=== PATIENT | male | born 1980 | race Caucasian/White ===

== ENCOUNTER 2018-09-12 17:07 | Emergency (ER) | payer MEDICAID, OTHER ==
[~2018-09-12] VITALS: Ht 167.6 cm; Wt 64.2 kg
[2018-09-12 17:11] VITALS: BP 116/77
[2018-09-12] MEDS ORDERED: FLUORESCEIN OPHTHALMIC 1 MG STRIP ONE (17:40)
[2018-09-12] MEDS ORDERED: PROPARACAINE OPHTH 0.5%, 15ML ONE (17:40)
[2018-09-12] MEDS ORDERED: FLUORESCEIN OPHTHALMIC 1 MG STRIP EACHEYE ONE (18:00)
[2018-09-12] MEDS ORDERED: PROPARACAINE OPHTH 0.5%, 15ML EACHEYE ONE (18:00)
== END 2018-09-12 18:11 | disposition home or self-care (01) ==
LOC: ED 18:05
DX: S05.02XA Injury of conjunctiva and corneal abrasion without foreign body, left eye, initial encounter (principal); F17.200 Nicotine dependence, unspecified, uncomplicated; X58.XXXA Exposure to other specified factors, initial encounter; Y93.89 Activity, other specified; Y92.89 Other specified places as the place of occurrence of the external cause; Y99.8 Other external cause status
CPT/HCPCS: 99283